=== PATIENT | male | born 1945 | race Caucasian/White ===

== ENCOUNTER → 2024-06-05 | Outpatient (CLI) | payer OTHER, SELFPAY ==
--- NOTE | 2024-06-05 09:00 | XR_ITS ---
Examination: CTA carotids with intravenous contrast CTA brain, head with intravenous contrast. 2-D sagittal, coronal reconstructions. 3-D reconstructions. Exam date and time: June 05, 2024 0954 hours INDICATIONS: Diagnosis bilateral carotid occlusion 2019, neck stiffness, transient ischemic attacks CTDI: vol (mGy) 30.1 DLP: (mGycm) 454 Technique: Multiple CTA axial brain, head carotid images post intravenous contrast injection 75 cc, [id number]. 2-D sagittal, coronal reconstructions. 3-D reconstructions, 3-D post processing including vascular maximum intensity projection images. Low dose protocols were performed. One or more of the following dose reduction techniques were used; automated exposure control, adjustment of the mA and/or KV according to patient size, use of iterative reconstruction technique. Findings: Very heavy, carotid calcification Severe calcification at the carotid bifurcations and origins of the internal carotid arteries There is filling of the mid and distal neck internal carotid arteries including the petrous portions of the internal carotid arteries There is heavy calcification at the left juxtasellar carotid artery There is filling of the M1 segments middle cerebral arteries and trifurcation vessels as well as basilar artery and posterior cerebral branches Vertebral arteries bilaterally are small The left vertebral artery is not visualized in its proximal portion IMPRESSION: Very severe calcification at the carotid bifurcations and origins in the internal carotid arteries There is, however, filling of the mid and distal neck internal carotid arteries and petrous portions of the internal carotid arteries Recommend correlation with carotid Doppler sonography
== END | disposition home or self-care (01) ==
LOC: CCTX 09:09
PROVIDERS: PCP Family Medicine; Referring Provider Family Medicine; Visit Provider Family Medicine
DX: I65.29 Occlusion and stenosis of unspecified carotid artery (principal)
CPT/HCPCS: 70498; A4649; Q9967